=== PATIENT | male | born 1985 | race Two or more races ===

== ENCOUNTER 2018-11-14 21:21 | Emergency (ER) | payer OTHER ==
[~2018-11-14] VITALS: Ht 170.2 cm; Wt 117.9 kg
[2018-11-14 21:30] VITALS: BP 127/84
--- NOTE | 2018-11-14 21:30 | NUR ---
ED Nurse Note: Ninoska walked into ED c/o burn suffered on the patients right hand, patient states that he handled a hot object causing a burn on the right index and right thumb, reports of 7/10 pain, at time of arrrival no boils present, skin is intact. patient is alert and oriented x4, ambulatory with a steady gait, VSS
[2018-11-14] MEDS ORDERED: SILVADENE20 GM TP (21:56)
[2018-11-14] MEDS ORDERED: TYLENOL EXTRA500 MG ORAL (21:56)
[2018-11-14 22:00] VITALS: BP 125/82
[2018-11-14] MEDS ORDERED: Tetanus/Diptheria/Pertussis IM ONE (22:00)
--- NOTE | 2018-11-14 22:00 | NUR ---
ER DISCHARGE NOTE: Patient is cleared to be discharged per ERMD, pt is aox4, on room air, with stable vital signs. pt was given dc and prescription instructions, pt was able to verbalize understanding, pt id band removed without complications. pt is able to ambulate with steady gait. pt took all belongings. ointment was applied as well as wrapped patient's fingers,
--- NOTE | 2018-11-15 00:49 | Emergency Room Report ---
History of Present Illness General Chief Complaint: Burn/Smoke Inhalation Source: Patient Present Illness HPI 33-year-old male presents ED for evaluation. States that he burned his hand holding a hot francis at work today. States he has pain to his right hand. Dull, 7 out of 10, nonradiating. Tetanus unknown. Denies any other injuries. No other aggravating relieving factors. Denies any other associated symptoms Allergies: Coded Allergies: No Known Allergies (Unverified , 11/14/18) Patient History Past Medical History: none Past Surgical History: none Pertinent Family History: none Social History: Denies: smoking, alcohol use, drug use Immunizations: UTD Reviewed Nursing Documentation: PMH: Agreed; PSxH: Agreed Nursing Documentation-PMH Past Medical History: No Stated History Review of Systems All Other Systems: negative except mentioned in HPI Physical Exam Vital Signs Date Time Temp Pulse Resp B/P (MAP) Pulse Ox O2 Delivery O2 Flow Rate FiO2 11/14/18 21:28 98.2 66 16 134/84 97 Room Air Sp02 EP Interpretation: reviewed, normal General Appearance: no apparent distress, alert, GCS 15, non-toxic Head: normocephalic Eyes: bilateral eye normal inspection, bilateral eye PERRL ENT: normal ENT inspection Neck: normal inspection Respiratory: normal inspection Cardiovascular #1: normal inspection Gastrointestinal: normal inspection Rectal: deferred Genitourinary: no CVA tenderness Musculoskeletal: normal inspection Neurologic: alert, oriented x3, responsive, motor strength/tone normal, sensory intact, speech normal Psychiatric: normal inspection Skin: pal - 1st degree burn to R thumb, R 5th finger Lymphatic: normal inspection Medical Decision Making Diagnostic Impression: Primary Impression: Burn injury ER Course Hospital Course 33 year-old M presents to ED with redness to hand Differential diagnoses include: Cellulitis, dermatitis, insect bite, abscess, burn Clinical course Patient placed on stretcher. After initial history, physical exam reveals a male in no acute distress. On exam there is area of redness to the R thumb, R 5th finger. no blistering. likely 1st degree burn discussed findings with patient. silvadene cream applied. given tetanus and tylenol safe for discharge with close outpatient followup. does not have a PMD - we'll provide referrals Diagnosis - burn injury stable and discharged to home with prescription for Tylenol, silvadene cream. Instructed to followup with PMD. Instructed return to ED if symptoms recur or worsen Last Vital Signs Date Time Temp Pulse Resp B/P (MAP) Pulse Ox O2 Delivery O2 Flow Rate FiO2 11/14/18 22:13 98.2 11/14/18 22:00 62 16 125/82 97 Room Air Status: improved Disposition: HOME, SELF-CARE Condition: Stable Scripts Acetaminophen* (TYLENOL EXTRA STRENGTH*) 500 Mg Tablet 500 MG ORAL Q8H PRN for Prn Headache/Temp > 101, #30 TAB 0 Refills Prov: Toy Cunningham MD 11/14/18 Silver Sulfadiazine (SILVADENE) 20 Gm Cream..g. 20 GM TP BID, #20 GM Prov: Toy Cunningham MD 11/14/18 Referrals: NOT CHOSEN IPA/,REFERRING (PCP) Masha Walden [facility]. [facility] Departure Forms: Return to Work Return to Work Date: Nov 14, 2018 Work Restrictions: No Heavy Lifting Patient Instructions: Burn Care Toy Cunningham MD Nov 15, 2018 00:48
== END 2018-11-14 22:00 | disposition home or self-care (01) ==
LOC: EMR 21:45
DX: T23.142A Burn of first degree of multiple left fingers (nail), including thumb, initial encounter (principal); X15.3XXA Contact with hot saucepan or skillet, initial encounter; Y92.59 Other trade areas as the place of occurrence of the external cause; Y99.0 Civilian activity done for income or pay; Z23 Encounter for immunization
CPT/HCPCS: 90471; 90715; 99283